=== PATIENT | female | born 1995 | race Caucasian/White ===

== ENCOUNTER 2017-04-21 07:59 | Emergency (ER) | payer OTHER ==
[2017-04-21] MEDS ORDERED: PROCHLORPERAZINE MALEATE 10 MG TABLET PO ONE (08:40)
[2017-04-21] MEDS ORDERED: DIPHENHYDRAMINE HCL 25 MG CAPSULE PO ONE (08:40)
[2017-04-21] MEDS ORDERED: NAPROXEN 250 MG TABLET PO ONE (08:41)
--- NOTE | 2017-04-21 08:46 | ER Document Report ---
ED Headache - General Mode of Arrival: Ambulatory Information source: Patient TRAVEL OUTSIDE OF THE [place] IN LAST 30 DAYS: No - HPI Patient complains to provider of: Headache Associated symptoms: Other - see above - General Chief Complaint: Headache Stated Complaint: PAIN IN FOREHEAD LEFT SIDE Time Seen by Provider: 04/21/17 08:28 Notes: Patient is a 21 year old female who presents to the ED with complaints of a right sided headache with onset approximately 0700 this morning. Patient states she was getting ready for school and the left side of her nose, lips and inside of her mouth felt numb, while driving to school her left hand became numb and tingling, mostly on her pinky and ring finger. She also had blurred vision in her left eye which she states is her "bad eye". Patient denies a history of migraines. Patients last menstrual period was 04/14/2017 and was normal. Patient states there is no chance of . Patient is otherwise healthy and has no surgical history. (MICHELET SANTAMARIA) - Related Data Allergies/Adverse Reactions: No Known Allergies Allergy (Verified 04/21/17 08:05) Past Medical History - General Information source: Patient - Social History Smoking Status: Unknown if Ever Smoked Family History: Reviewed & Not Pertinent Renal/ Medical History: Denies: Hx Peritoneal Dialysis GI Medical History: Reports: Hx Gastroesophageal Reflux Disease - Immunizations Hx Diphtheria, Pertussis, Tetanus Vaccination: No Review of Systems - Review of Systems Constitutional: No symptoms reported EENT: No symptoms reported, Blurred vision Cardiovascular: No symptoms reported Respiratory: No symptoms reported Gastrointestinal: No symptoms reported Genitourinary: No symptoms reported Female Genitourinary: No symptoms reported Musculoskeletal: No symptoms reported Skin: No symptoms reported Hematologic/Lymphatic: No symptoms reported Neurological/Psychological: See HPI, Headaches, Numbness, Tingling Physical Exam - General General appearance: Appears well, Alert In distress: None - HEENT Head: Normocephalic, Atraumatic, Other - right parietal scalp tenderness, right temporal tednerness Eyes: Normal Extraocular movements intact: Yes Pupils: PERRL Neck: Other - right posterior and left posterior cervical muscles are tender to palpation - Respiratory Respiratory status: No respiratory distress - Cardiovascular Rhythm: Regular - Abdominal Distension: No distension - Back Back: Normal - Extremities General upper extremity: Normal inspection, Normal ROM, Other - with palpation to the ulnar canal, it would give sensation in the ulnar nerve distribution that was similar to what patient was feeling. General lower extremity: Normal inspection, Normal ROM - Neurological Neuro grossly intact: Yes - no focal defecit to face or extremities - Psychological Associated symptoms: Normal affect, Normal mood - Skin Skin Temperature: Warm Skin Moisture: Dry Skin Color: Normal - Vital signs Vitals: Temp Pulse Resp BP Pulse Ox 98.1 F 73 20 131/78 H 98 04/21/17 08:00 04/21/17 08:00 04/21/17 08:00 04/21/17 08:00 04/21/17 08:00 Course - Re-evaluation Re-evalutation: 04/21/17 10:49 The patient is feeling better. Her right parietal scalp is pump and still operator to palpate but not quite as bad. She reports that the entire left hand seems to bother her, but it is predominantly the hyperthenar aspect. There is no motor deficit. She reports her mother wanted her to be tested for meningitis because she had meningitis with the same symptoms. Patient has no nuchal rigidity, she is able to place her chin on her chest and smile while she does it. There is no tenderness or pain behind the eyeballs or the forehead area when she flexes her neck and places her chin on her chest. There is no fever. (HARSH WILDER) - Vital Signs Vital signs: Temp Pulse Resp BP Pulse Ox 98.1 F 73 20 131/78 H 98 04/21/17 08:00 04/21/17 08:00 04/21/17 08:00 04/21/17 08:00 04/21/17 08:00 Discharge - Discharge Clinical Impression: Ulnar neuropathy at elbow of left upper extremity Headache Qualifiers: Headache type: tension-type Headache chronicity pattern: unspecified pattern Intractability: not intractable Qualified Code(s): G44.209 - Tension-type headache, unspecified, not intractable Condition: Stable Disposition: HOME, SELF-CARE Additional Instructions: Headache: The physician does not feel that the headache you are experiencing has a serious underlying cause. Most headaches are due to muscle tension (tension headache). Occasionally, headaches are secondary to changes in the blood vessels of the scalp (vascular headache and migraine headache). Sometimes, a headache is the first symptom of another developing illness, such as a viral infection. You have no evidence of stroke, bleeding, meningitis, or other serious cause of your headache. The treatment of headaches varies with the severity and cause of the pain. Not all headaches need pain shots. In fact, there is evidence that using narcotics for headaches may make them worse in the long run. The physician will determine the therapy that's in your best interest. If you develop a fever, if the headache is different from any you've previously experienced, or if the headache progressively worsens, then call your physician at once or go to the emergency room. TRY THE MEDICATION PRESCRIBED FOR YOUR HEADACHE. REST TODAY. FOLLOW UP WITH A LOCAL MEDICAL DOCTOR IF NOT IMPROVING WITH THE HEADACHE OR THE LEFT HAND NUMBNESS. Prescriptions: Butalb/Acetaminophen/Caffeine [Fioricet (50-325-40 mg) Tablet] 1 - 2 tab PO Q4H PRN #20 tab PRN Reason: Forms: Return to School, Return to Work Scribe Attestation: 04/21/17 10:57 I personally performed the services described in the documentation, reviewed and edited the documentation which was dictated to the scribe in my presence, and it accurately records my words and actions. (HARSH WILDER) Scribe Documentation - Scribe Written by Pelon:: pelon Abebe, 04/21/2017, 0849 acting as scribe for :: Rashi
[2017-04-21 11:10] VITALS: BP 113/75
== END 2017-04-21 11:05 | disposition home or self-care (01) ==
LOC: ER 07:59
DX: G44.209 Tension-type headache, unspecified, not intractable (principal); G56.22 Lesion of ulnar nerve, left upper limb; R20.0 Anesthesia of skin; R20.2 Paresthesia of skin; H53.8 Other visual disturbances
CPT/HCPCS: 99283; S0183

== ENCOUNTER 2018-02-15 14:57 | Emergency (ER) | payer SELFPAY ==
--- NOTE | 2018-02-15 16:52 | RADIOLOGY REPORT (SQ) ---
EXAM DESCRIPTION: CERV SP 4 OR 5 VIEWS COMPLETED DATE/TIME: 02/15/2018 4:23 pm REASON FOR STUDY: pain numbness tingling COMPARISON: None. NUMBER OF VIEWS: Five views. TECHNIQUE: AP, lateral, obliques and odontoid radiographic images acquired of the cervical spine. LIMITATIONS: None. FINDINGS: MINERALIZATION: Normal. ALIGNMENT: Anatomic. VERTEBRAE: Vertebral bodies of normal height. DISCS: No significant osteophytes or sclerosis. Disc height maintained. FORAMINA: No osteophytes or foraminal narrowing. LATERAL AND POSTERIOR ELEMENTS: Facets, lateral masses and spinous processes without significant find ings. HARDWARE: None in the spine. SOFT TISSUES: No masses or calcifications. Lung apices clear. OTHER: No other significant finding. IMPRESSION: NO SIGNIFICANT RADIOGRAPHIC FINDING IN THE CERVICAL SPINE. TECHNICAL DOCUMENTATION: JOB ID: [id number] [employer]- All Rights Reserved Reading location - IP/workstation name: [email or web address]
[2018-02-15 17:01] LABS: ABSOLUTE EOSINOPHILS # (AUTO) 0.4 10^3/uL (0.0-0.6); ABSOLUTE LYMPHOCYTES (AUTO) 3.1 10^3/uL (0.5-4.7); ABSOLUTE MONOCYTES (AUTO) 0.6 10^3/uL (0.1-1.4); ABSOLUTE NEUT (AUTO) 7.3 10^3/uL (1.7-8.2); BASOPHILS % (AUTO) 0.3 % (0-2); EOSINOPHILS % (AUTO) 3.7 % (0-6); HEMATOCRIT 39.2 % (36.0-47.0); HEMOGLOBIN 13.3 g/dL (12.0-15.5); LYMPHOCYTES % (AUTO) 26.9 % (13-45); MEAN CORPUSCULAR HEMOGLOBIN 30.1 pg (27.0-33.4); MEAN CORPUSCULAR VOLUME 88 fl (80-97); MONOCYTES % (AUTO) 5.5 % (3-13); PLATELET COUNT 258 10^3/uL (150-450); RED BLOOD COUNT 4.44 10^6/uL (3.72-5.28); RED CELL DISTRIBUTION WIDTH 12.3 % (11.5-14.0); SEGMENTED NEUTROPHILS % (AUTO) 63.6 % (42-78); TOTAL CELLS COUNTED % (AUTO) 100 %; WHITE BLOOD COUNT 11.4 10^3/uL (4.0-10.5)
[2018-02-15 17:17] LABS: ANION GAP 12 (5-19); BLOOD UREA NITROGEN 17 mg/dL (7-20); CALCIUM 9.9 mg/dL (8.4-10.2); CARBON DIOXIDE 28 mmol/L (22-30); CHLORIDE 103 mmol/L (98-107); GLUCOSE 81 mg/dL (75-110); POTASSIUM 4.3 mmol/L (3.6-5.0); SODIUM 142.5 mmol/L (137-145)
[2018-02-15 18:11] VITALS: BP 120/56
--- NOTE | 2018-02-15 18:15 | ER Document Report ---
ED General - General Chief Complaint: Numbness of Arm Stated Complaint: LEFT ARM NUMBNESS,DIZZINESS Time Seen by Provider: 02/15/18 16:03 TRAVEL OUTSIDE OF THE [place] IN LAST 30 DAYS: No - HPI Patient complains to provider of: Left arm numbness Notes: Patient coming in for left arm numbness patient states started initially in her hands in the middle of her forearm. Patient also states she has some blurring of her fingertips. Patient states she has had intermittent episodes like this in the past few months worse today. Patient denies any recent trauma denies any fever chills nausea vomiting diarrhea. Patient comfortably upon my evaluation. - Related Data Allergies/Adverse Reactions: No Known Allergies Allergy (Verified 02/15/18 14:59) Past Medical History - Social History Smoking Status: Former Smoker Chew tobacco use (# tins/day): No Frequency of alcohol use: Occasional Drug Abuse: None Family History: Reviewed & Not Pertinent Patient has suicidal ideation: No Patient has homicidal ideation: No Renal/ Medical History: Denies: Hx Peritoneal Dialysis GI Medical History: Reports: Hx Gastroesophageal Reflux Disease - Immunizations Hx Diphtheria, Pertussis, Tetanus Vaccination: No Review of Systems - Review of Systems Constitutional: Other - Numbness EENT: No symptoms reported Cardiovascular: No symptoms reported Respiratory: No symptoms reported Gastrointestinal: No symptoms reported Genitourinary: No symptoms reported Female Genitourinary: No symptoms reported Musculoskeletal: No symptoms reported Skin: No symptoms reported Hematologic/Lymphatic: No symptoms reported Neurological/Psychological: No symptoms reported Physical Exam - Vital signs Vitals: Temp Pulse Resp BP Pulse Ox 98.7 F 67 16 121/59 L 97 02/15/18 15:15 02/15/18 15:15 02/15/18 15:15 02/15/18 15:15 02/15/18 15:15 Interpretation: Normal - General General appearance: Appears well, Alert - HEENT Head: Normocephalic, Atraumatic Eyes: Normal Pupils: PERRL - Respiratory Respiratory status: No respiratory distress Chest status: Nontender Breath sounds: Normal Chest palpation: Normal - Cardiovascular Rhythm: Regular Heart sounds: Normal auscultation Murmur: No - Abdominal Inspection: Normal Distension: No distension Bowel sounds: Normal Tenderness: Nontender Organomegaly: No organomegaly - Back Back: Normal, Nontender - Extremities General upper extremity: Normal inspection, Nontender, Normal color, Normal ROM , Normal temperature General lower extremity: Normal inspection, Nontender, Normal color, Normal ROM , Normal temperature, Normal weight bearing. No: Johanna's sign - Neurological Neuro grossly intact: Yes Cognition: Normal Orientation: AAOx4 Stanchfield Coma Scale Eye Opening: Spontaneous [place]anch[place] Coma Scale Verbal: Oriented Stanch[place] Coma Scale Motor: Obeys Commands Stanchfield Coma Scale Total: 15 Speech: Normal Motor strength normal: LUE, RUE, LLE, RLE Sensory: Normal Biceps - Reflex grade: 2 = Normal Triceps - Reflex grade: 2 = Normal Brachioradialis - Reflex grade: 2 = Normal Knee - Reflex grade: 2 = Normal - Psychological Associated symptoms: Normal affect, Normal mood - Skin Skin Temperature: Warm Skin Moisture: Dry Skin Color: Normal Course - Re-evaluation Re-evalutation: 02/15/18 21:01 Normal examination patient possibly has underlying for nausea phenomenon. Patient was encouraged follow-up with her primary care physician list of PCPs were given here in the area. Patient was discharged home. - Vital Signs Vital signs: Temp Pulse Resp BP Pulse Ox 98.7 F 65 17 120/56 L 100 02/15/18 15:15 02/15/18 18:10 02/15/18 18:10 02/15/18 18:10 02/15/18 18:10 - Laboratory Result Diagrams: 02/15/18 16:35 02/15/18 16:35 Laboratory results interpreted by me: 02/15/18 02/15/18 16:35 16:35 WBC 11.4 H Phosphorus 5.0 H Discharge - Discharge Clinical Impression: Paresthesias Condition: Good Disposition: HOME, SELF-CARE Instructions: Family Physicians / Practices, Numbness or Paresthesia ([facility]) Additional Instructions: At this time do not have clear etiology for your symptoms. I recommend she follow-up primary care physician return to ER symptoms worsen. Recommend taking multivitamin drinking plenty of water and fluids containing electrolytes. He may will follow up with 1 of the physicians provided
== END 2018-02-15 18:21 | disposition home or self-care (01) ==
LOC: ER 14:57
DX: R20.0 Anesthesia of skin (principal); Z87.891 Personal history of nicotine dependence
CPT/HCPCS: 36415; 72050; 80048; 83735; 84100; 84703; 85025; 99284

== ENCOUNTER 2018-12-20 22:29 | Emergency (ER) | payer OTHER ==
[2018-12-21] MEDS ORDERED: HYDROXYZINE PAMOATE 25 MG CAPSULE (4 CAP/ER DISP) PO PRN (01:48)
--- NOTE | 2018-12-21 01:52 | ER Document Report ---
ED General - General Chief Complaint: Anxiety Stated Complaint: PANIC ATTACK Time Seen by Provider: 12/21/18 01:30 Notes: Patient is a 23-year-old female who presents with complaint of having severe pain attack. She says she has chronic depression and anxiety. She says she can afford medications to see a doctor about it. She says that she does have history of panic attacks. She said this is worse when she ever had. She states she was in the kitchen doing things and was thinking about something that was frustrating her. She then started to hyperventilate and felt unwell. Said she felt numbness and tingling going into her extremities. She then laid down and shaking all over. Patient says that she was still shaking on her way to the ER. She says since arriving to the ER her anxiety and stress is come down and the shaking went away. TRAVEL OUTSIDE OF THE [place] IN LAST 30 DAYS: No - Related Data Allergies/Adverse Reactions: No Known Allergies Allergy (Verified 02/15/18 14:59) Past Medical History - Social History Smoking Status: Unknown if Ever Smoked Frequency of alcohol use: None Drug Abuse: None Family History: Reviewed & Not Pertinent Renal/ Medical History: Denies: Hx Peritoneal Dialysis GI Medical History: Reports: Hx Gastroesophageal Reflux Disease - Immunizations Hx Diphtheria, Pertussis, Tetanus Vaccination: No Review of Systems - Review of Systems Notes: My Normal Review Basic REVIEW OF SYSTEMS: CONSTITUTIONAL : Denies fever, chills, or sweats. Denies recent illness. RESPIRATORY: Denies cough, cold, or chest congestion. Denies shortness of breath, difficulty breathing, or wheezing. GASTROINTESTINAL: Denies abdominal pain. Denies nausea, vomiting, or diarrhea. MUSCULOSKELETAL: Denies neck or back pain or joint pain or swelling. SKIN: Denies rash or skin lesions. NEUROLOGICAL: Denies altered mental status or loss of consciousness. Denies headache. Denies weakness or paralysis or loss of use of either side. Denies problems with gait or speech. Denies sensory or motor loss. Psychiatric: Chronic anxiety. Patient denies any thoughts of suicide. Has some chronic depression. ALL OTHER SYSTEMS REVIEWED AND NEGATIVE. Physical Exam - Vital signs Vitals: Temp Pulse Resp BP Pulse Ox 98.2 F 96 20 118/70 99 12/20/18 22:59 12/20/18 22:59 12/20/18 22:59 12/20/18 22:59 12/20/18 22:59 - Notes Notes: General Appearance: Well nourished, alert, cooperative, no acute distress, no obvious discomfort. Well-appearing. Vitals: reviewed, See vital signs table. Eyes: PERRL, EOMI, Conjuctiva clear Lungs: No wheezing, No rales, No rhonci, No accessory muscle use, good air exchange bilaterally. Heart: Normal rate, Regular rythm, No murmur, no rub Abdomen: Normal BS, soft, No rigidity, No abdominal tenderness, No guarding, no rebound, no abdominal masses, no organomegaly Extremities: good pulses in all extremities Skin: warm, dry, appropriate color Neuro: speech clear, oriented x 3, normal affect, responds appropriately to questions. Course - Re-evaluation Re-evalutation: 12/21/18 01:51 Patient is feeling much improved. Her symptoms have resolved. I talked her length about anxiety and treatment for. She says she does not have insurance or money right now and therefore she can afford to go therapy. I will send her home with some Vistaril. I talked about coping mechanisms such as laying down in a dark room and close her eyes when she is feeling stressed. Currently she says she does have some chronic depression but is not suicidal. I encouraged her return to ER immediately if she has worsening anxiety, any thoughts of suicide, worsening depression, or she feels unwell. Patient agrees with plan an d will be discharged home. Dictation of this chart was performed using voice recognition software; therefore, there may be some unintended grammatical errors. - Vital Signs Vital signs: Temp Pulse Resp BP Pulse Ox 98 F 72 16 105/73 100 12/21/18 02:12 12/21/18 02:12 12/21/18 02:12 12/21/18 02:12 12/21/18 02:12 Discharge - Discharge Clinical Impression: Anxiety Condition: Good Disposition: HOME, SELF-CARE Instructions: Anxiety ([facility]) Additional Instructions: Anxiety The physician feels that some of your health problems are being caused by anxiety. Anxiety affects your health in many ways. Anxiety alone can cause palpitations, sweats, chest pains, abdominal pains, shortness of breath, and headaches. It contributes to ulcer disease, high blood pressure, irritable bowel syndrome, and has been shown to cause flare-ups of many other diseases. Anxiety is not a simple disorder to treat. If the anxiety is due to recent life stresses, you may simply need time to "work through" the changes. If the anxiety is due to an underlying unhappiness with yourself or due to psychiatric disturbance, professional help will be needed. Your physician can refer you for further help if needed. I prescribed you a medication called Vistaril. You can take this medication when you are feeling very anxious or stressed. It may make you a little bit sleepy. Do not take more than twice a day. When you are feeling anxious or stressed it is good to put herself in a dark room to lay down and close your eyes and try to relax. Please return to the ER if you have worsening anxiety, panic attack not improved with medication, severe depression, thoughts of suicide, or feel unwell. Prescriptions: Hydroxyzine Pamoate [Vistaril 25 mg Capsule] 25 mg PO Q12 PRN #15 capsule PRN Reason: Anxiety Forms: Return to Work
[2018-12-21 02:13] VITALS: BP 105/73
== END 2018-12-21 02:12 | disposition home or self-care (01) ==
LOC: ER 22:29
DX: F41.9 Anxiety disorder, unspecified (principal); F32.9 Major depressive disorder, single episode, unspecified
CPT/HCPCS: 99283; J3490